=== PATIENT | male | born 1990 | race Caucasian/White ===

== ENCOUNTER 2020-04-09 11:14 | Emergency (ER) | payer OTHER ==
[~2020-04-09] VITALS: Ht 175.3 cm; Wt 79.4 kg
[2020-04-09 11:15] VITALS: BP 143/81
--- NOTE | 2020-04-09 11:15 | NUR ---
ED Nurse Note: Patient BIBA from work after witnessed seizure. Patient currently post-ictal. Seizure length of time unkown. Patient currently AxO x 4, side rails padded, patient laying on left side for safety. Patient on the insole and outsole splitter, POC blood sugar 132, Dr. Stallworth aware. Will continue to monitor.
[2020-04-09] MEDS ORDERED: BENAZEPRIL HCL10 MG ORAL (11:18)
[2020-04-09] MEDS ORDERED: DILANTIN100 MG ORAL (11:18)
[2020-04-09 11:35] LABS: HEMATOCRIT 39.6 % (42.0-52.0); MEAN CORPUSCULAR VOLUME 99 FL (80-99); PLATELET COUNT 108 K/UL (150-450); RED BLOOD COUNT 3.98 M/UL (4.70-6.10); RED CELL DISTRIBUTION WIDTH 12.8 % (11.6-14.8); WHITE BLOOD COUNT 11.1 K/UL (4.8-10.8)
[2020-04-09 11:59] LABS: ANION GAP 21 mmol/L (5-15); BLOOD UREA NITROGEN 7 mg/dL (7-18); CARBON DIOXIDE 20 MMOL/L (21-32); CHLORIDE 97 MMOL/L (98-107); CREATININE 1.1 MG/DL (0.55-1.30); SODIUM 138 MMOL/L (136-145)
[2020-04-09 12:04] LABS: ALANINE AMINOTRANSFERASE 254 U/L (12-78); ALBUMIN/GLOBULIN RATIO 0.9 (1.0-2.7); ALKALINE PHOSPHATASE 126 U/L (46-116); ASPARTATE AMINO TRANSFERASE 562 U/L (15-37); BILIRUBIN,TOTAL 0.4 MG/DL (0.2-1.0)
[2020-04-09 13:10] VITALS: BP 145/79
--- NOTE | 2020-04-09 13:15 | NUR ---
ED Nurse Note: Patient resting in bed, no s/s of acute distress. VSS.
[2020-04-09] MEDS ORDERED: Phenytoin 1,000 MG in NS 275 ML IVPB ONE (13:30)
--- NOTE | 2020-04-09 14:31 | Emergency Room Report ---
History of Present Illness General Chief Complaint: Seizure Source: Patient, EMS ([facility]) Present Illness HPI Patient has a history of seizure disorder. He usually takes Dilantin. He had a seizure at work and was altered. He is still postictal at the time of my evaluation. He had no specific complaints. He admits to not taking his Dilantin. [facility] Allergies: Coded Allergies: No Known Allergies (Unverified , 04/09/20) COVID-19 Screening Contact w/high risk pt: No Experienced COVID-19 symptoms?: No ([facility] Patient History Past Medical History: see triage record, HTN, seizures Social History: Reports: drug use; Denies: smoking, alcohol use Reviewed Nursing Documentation: PMH: Agreed; PSxH: Agreed ([facility] Nursing Documentation-PMH Past Medical History: No History, Except For Hx Hypertension: Yes Hx [facility]ures: Yes [facility] Review of Systems All Other Systems: negative except mentioned in HPI ([facility]) Physical Exam Vital Signs Date Time Temp Pulse Resp B/P (MAP) Pulse Ox O2 Delivery O2 Flow Rate FiO2 04/09/20 11:09 98.8 85 16 143/81 (101) 98 Room Air Sp02 EP Interpretation: reviewed, normal General Appearance: no apparent distress, alert, GCS 15, non-toxic Head: normocephalic, atraumatic Eyes: bilateral eye normal inspection, bilateral eye PERRL ENT: hearing grossly normal, normal pharynx, no angioedema, normal voice Neck: full range of motion, supple/symm/no masses Respiratory: chest non-tender, lungs clear, normal breath sounds, no respiratory distress, no retraction, no accessory muscle use, speaking full sentences Cardiovascular #1: regular rate, rhythm, no edema Gastrointestinal: normal bowel sounds, non tender, soft, non-distended, no guarding, no rebound Rectal: deferred Musculoskeletal: back normal, normal range of motion, non-tender Neurologic: alert, motor strength/tone normal, oriented x3, sensory intact, responsive, speech normal Psychiatric: mood/affect normal, no suicidal/homicidal ideation Skin: no rash, normal color (Colianno,Karime M. DO) Medical Decision Making Diagnostic Impression: Primary Impression: Seizure disorder Additional Impression: Transaminitis ER Course I suspect the seizures that the patient is presenting with is non-emergent in etiology. The patient has a history of seizures in the past and has returned to baseline with normal neurologic status. The patient is not immunocompromised with no history of known structural brain disease. The patient does not have persistent altered mental status, fever or new focal neurologic deficit. Laboratory workup was noncontributory. I doubt meningitis so a lumbar puncture was not performed. The patient was counseled that, though unlikely, the possibility of an emergent cause of seizure may still be present and that the patient should return immediately if symptoms persist or worsen. I believe the patient is stable for discharge to followup with the primary care provider for further workup. (Karime Stallworth DO) ER Course Patient signed out to me. Previous physician felt patient needed admission for observation. Patient has had multiple seizures today. He reports compliance with his Keppra and Dilantin however Dilantin level was subtherapeutic. Patient did not feel comfortable going home either. I spoke with who accepted patient for admission at [facility]. Patient was stable for transfer. Patient updated. (Koko Bishop M.D.) EKG Diagnostic Results Rate: normal Rhythm: NSR ST Segments: no acute changes (Karime Stallworth DO) Rhythm Strip Diag. Results EP Interpretation: yes Rate: 70's Rhythm: NSR, no PVC's, no ectopy (Karime Stallworth DO) Last Vital Signs Date Time Temp Pulse Resp B/P (MAP) Pulse Ox O2 Delivery O2 Flow Rate FiO2 04/09/20 11:15 85 16 Room Air 04/09/20 11:15 98.8 143/81 98 (Karime Stallworth DO) Disposition: ADMITTED INPATIENT Condition: Serious Referrals: NON PHYSICIAN (PCP) Karime Stallworth DO Apr 09, 2020 14:31 Koko Bishop M.D. Apr 09, 2020 17:27
[2020-04-09 15:00] VITALS: BP 143/83
--- NOTE | 2020-04-09 15:05 | NUR ---
ED Nurse Note: Dr. Bishop at bedside.
[2020-04-09 17:00] VITALS: BP 146/81
--- NOTE | 2020-04-09 17:19 | NUR ---
ED Nurse Note: Patient resting in bed, no s/s of acute distress. Breathing even and unlabored.
--- NOTE | 2020-04-09 18:19 | NUR ---
ED Nurse Note: Report given to BROOKS Robertson from [facility] via phone
[2020-04-09 18:30] VITALS: BP 141/83
--- NOTE | 2020-04-09 18:30 | NUR ---
ED Nurse Note: Report given to [facility], patient VSS. No s/s of acute distress.
== END 2020-04-09 18:30 | disposition other institution (70) ==
LOC: EDBD 11:14 → EMR 12:31
DX: G40.909 Epilepsy, unspecified, not intractable, without status epilepticus (principal); R74.0 Nonspecific elevation of levels of transaminase and lactic acid dehydrogenase [LDH]; I10 Essential (primary) hypertension; Z79.899 Other long term (current) drug therapy
CPT/HCPCS: 36415; 80053; 80185; 80307; 85007; 85025; 93005; 96361; 96365; J1165; J7030; J7050; Z7502; 99284